=== PATIENT | female | born 1985 | race African-American/Black ===

== ENCOUNTER 2016-09-17 12:19 | Emergency (ER) | payer MEDICAID ==
[~2016-09-17] VITALS: Ht 157.5 cm; Wt 48.3 kg
[~2016-09-17 12:19] MED LIST: albuterol
[2016-09-17] MEDS ORDERED: MORPHINE SULFATE 4 MG/ML CPJ (NOT FOR IM USE) IV STA (13:21)
[2016-09-17] MEDS ORDERED: ONDANSETRON HCL 4MG/2ML VIAL IV STA (13:21)
[2016-09-17] MEDS ORDERED: SODIUM CHLORIDE 0.9% 1,000 ML IV ONE (13:21)
[2016-09-17 14:05] LABS: CLARITY URINE TURBID (CLEAR); COLOR URINE YELLOW (YELLOW); GLUCOSE URINE NEGATIVE (NEGATIVE); KETONES URINE NEGATIVE (NEGATIVE); LEUKOCYTE ESTERASE URINE 1+ (NEGATIVE); NITRITE URINE NEGATIVE (NEGATIVE); OCCULT BLOOD URINE NEGATIVE (NEGATIVE); PH URINE 5.5 (4.5-8.0); PROTEIN URINE NEGATIVE (NEGATIVE); SPECIFIC GRAVITY URINE 1.026 (1.005-1.030); UROBILINOGEN URINE 0.2 E.U./dL (0.2-1.0)
[2016-09-17 14:31] LABS: HEMATOCRIT. 38.3 % (36.0-48.0); MEAN CORPUSCULAR HEMOGLOBIN 30.2 pg (28.0-32.0); MEAN CORPUSCULAR VOLUME 89.3 fL (81.0-99.0); MEAN PLATELET VOLUME 8.6 fl (7.4-10.4); PLATELET 225 x1000/uL (130-400); RED BLOOD CELL COUNT 4.29 mill/uL (4.2-5.4); RED CELL DISTRIBUTION WIDTH 12.3 % (11.6-14.6)
[2016-09-17 14:33] LABS: CHLORIDE 105 mEq/L (98-107)
[2016-09-17 14:41] LABS: CARBON DIOXIDE 28 mEq/L (21-32)
[2016-09-17 15:58] LABS: HCG SCREEN NEGATIVE
[2016-09-17 16:43] LABS: ATYPICAL LYMPHOCYTES 1; PLATELET ESTIMATE NORMAL
[2016-09-17] MEDS ORDERED: MORPHINE SULFATE 4 MG/ML CPJ (NOT FOR IM USE) IV ONE (16:45)
[2016-09-17 17:20] VITALS: BP 108/64
== END 2016-09-17 17:49 | disposition home or self-care (01) ==
LOC: ER 14:56
DX: R11.2 Nausea with vomiting, unspecified (principal); R19.7 Diarrhea, unspecified; R10.9 Unspecified abdominal pain; J45.909 Unspecified asthma, uncomplicated; F17.200 Nicotine dependence, unspecified, uncomplicated
CPT/HCPCS: 36415; 74176; 80053; 81001; 83690; 84703; 85025; 96361; 96374; 96375; 96376; 99285; J2270; J2405; J7030

== ENCOUNTER 2017-04-24 10:45 | Emergency (ER) | payer MEDICAID ==
[~2017-04-24] VITALS: Ht 160 cm; Wt 54.0 kg
[2017-04-24 10:54] VITALS: BP 138/71
== END 2017-04-24 15:27 | disposition left against medical advice (07) ==
LOC: ER 13:01
DX: Z53.21 Procedure and treatment not carried out due to patient leaving prior to being seen by health care provider (principal)

== ENCOUNTER 2022-01-23 19:12 | Emergency (ER) | payer MEDICAID | END 2022-01-23 21:19 | disposition left against medical advice (07) | LOC: ER 19:12 | DX: Z53.21 Procedure and treatment not carried out due to patient leaving prior to being seen by health care provider (principal) ==

== ENCOUNTER 2024-01-25 06:24 | Emergency (ER) | payer MEDICAID ==
[~2024-01-25] VITALS: Ht 157.5 cm; Wt 60.0 kg
[2024-01-25 06:25] VITALS: TEMP 98.8
[2024-01-25] MEDS ORDERED: METHYLPREDNISOLONE SOD SUCC 125MG/2ML (ACT-O-VIAL) IV STA (06:31)
[2024-01-25 07:29] VITALS: PULSE 92; RESP 16; O2SAT 98
[2024-01-25] MEDS: IPRATROPIUM BROMIDE (0.02%) 0.5MG/2.5ML NEB HHN STA (07:29)
[2024-01-25] MEDS: ALBUTEROL (0.083%) 2.5MG/3ML NEB HHN STA (07:29)
[2024-01-25] MEDS: METHYLPREDNISOLONE SOD SUCC 125MG/2ML (ACT-O-VIAL) IV NR (08:24)
[2024-01-25] MEDS ORDERED: P50 PO (09:07)
[2024-01-25] MEDS ORDERED: ALBU18HF2 IH (09:07)
[2024-01-25 09:25] VITALS: BP 126/72; PULSE 92; RESP 16; O2SAT 99
== END 2024-01-25 09:32 | disposition home or self-care (01) ==
LOC: ER 06:31
DX: J45.909 Unspecified asthma, uncomplicated (principal)
CPT/HCPCS: 94640; 96374; 99285; J2919; Z7610 ×2